=== PATIENT | female | born 1980 | race African-American/Black ===

== ENCOUNTER 2017-03-20 11:11 | Emergency (ER) | payer MEDICAID ==
[~2017-03-20] VITALS: Ht 175.3 cm; Wt 94.0 kg
[~2017-03-20 11:11] MED LIST: OXYC30TA3 PO
[2017-03-20 11:13] VITALS: BP 127/79; PULSE 65; RESP 13; TEMP 98.6; O2SAT 97
[2017-03-20] MEDS ORDERED: AMOX875T PO (11:41)
--- NOTE | 2017-03-20 11:46 | PD ---
HPI Chief Complaint: Oral / Dental Pain or Problem Time Seen by Provider: 11:41 Travel History International Travel<30 days: No Contact w/Intl Traveler<30days: No Traveled to known affect area: No History of Present Illness HPI 36-year-old Afro-Maldivian female presents the emergency department with pain and loose #19 tooth. Patient states she's been doing this for several weeks. Patient is awaiting placement with an oral surgeon to have it fixed. Patient states she improves with amoxicillin previously but is unable to get in with her primary care physician for refill. She is not requesting any kind of pain medication. Pain is currently an 8 out of 10. She denies fever, chills, or difficulty swallowing. She has no known drug allergies. [facility] Past Medical History Anxiety: Yes Heart Rhythm Problems: Yes (HEART MURMUR) Cardiac Catheterization: No Cardiovascular Problems: Yes (HTN) High Cholesterol: No Chest Pain: Yes Congestive Heart Failure: No Diabetes: No Diminished Hearing: No Hypertension: Yes Musculoskeletal: Yes (CHRONIC BACK AND NECK PAIN SINCE 2004) Menopausal: Yes : 3 Para: 2 Miscarriage: 1 : 1 Past Surgical History Body Medical Devices: PATIENT STATES SHE HAS A HEART MURMUR. Coronary Artery Bypass Graft: No Social History Alcohol Use: Yes (SELDOM) Tobacco Use: Yes (CIGAR) Substance Use: No Allergies-Medications (Allergen,Severity, Reaction): Coded Allergies: No Known Allergies (Verified , 03/20/17) Reported Meds & Prescriptions Reported Meds & Active Scripts Active Reported Roxicodone (Oxycodone HCl) 30 Mg Tab 30 Mg PO Review of Systems Except as stated in HPI: all other systems reviewed are Neg General / Constitutional: No: Fever Eyes: No: Visual changes HENT: Positive: Dental Difficulties, No: Headaches, Sore Throat, Rhinitis, Rhinorrhea, Congestion, Neck Stiffness, Neck Pain, Gingival Bleeding, Ear Discharge, Earache Cardiovascular: No: Chest Pain or Discomfort Respiratory: No: Shortness of Breath Gastrointestinal: No: Abdominal Pain Genitourinary: No: Dysuria Musculoskeletal: No: Pain Skin: No Rash Neurologic: No: Weakness Psychiatric: No: Depression Endocrine: No: Polydipsia Hematologic/Lymphatic: No: Easy Bruising Physical Exam Narrative GENERAL: Patient appears in mild distress. SKIN: Warm and dry. Normal color. Normal turgor. HEAD: Atraumatic. Normocephalic. EYES: Pupils equal and round. No scleral icterus. No injection or drainage. ENT: No nasal bleeding or discharge. Mucous membranes pink and moist. No significant gingival swelling is noted. #19 tooth is loose and tender with palpation. Pharynx is clear. Airway is patent. No significant lymphadenopathy is noted. NECK: Trachea midline. Supple nontender without significant lymphadenopathy. No Estevan's angina. CARDIOVASCULAR: Regular rate and rhythm. RESPIRATORY: No accessory muscle use. Clear to auscultation. Breath sounds equal bilaterally. MUSCULOSKELETAL: Extremities without clubbing, cyanosis, or edema. No obvious deformities. NEUROLOGICAL: Awake and alert. No obvious cranial nerve deficits. Motor grossly within normal limits. Five out of 5 muscle strength in the arms and legs. Normal speech. PSYCHIATRIC: Appropriate mood and affect; insight and judgment normal. Data Data Last Documented VS Vital Signs Date Time Temp Pulse Resp B/P Pulse Ox O2 Delivery O2 Flow Rate FiO2 03/20/17 11:13 98.6 65 13 127/79 97 MDM Medical Decision Making Medical Screen Exam Complete: Yes Emergency Medical Condition: Yes Differential Diagnosis Dental pain. Dental abscess. Dental caries. Narrative Course Patient is medically stable at time of exam. Patient is given amoxicillin 875 twice a day #28. Patient take [id number] ibuprofen, Tylenol may resolve as needed. Patient follow-up with oral surgeon as discussed. Diagnosis Primary Impression: Pain, dental Referrals: Oral Maxillofacial Surgeon call for appointment Patient Instructions: General Instructions Additional Instructions: Patient is given amoxicillin 875 twice a day #28. Patient take [id number] ibuprofen, Tylenol may resolve as needed. Patient follow-up with oral surgeon as discussed. Med/Other Pt SpecificInfo: Prescription(s) given Scripts Amoxicillin 875 Mg Ned924 Mg PO BID #28 TAB Ref 1 Prov:Tiffany Montes De Oca MD 03/20/17 Disposition: 01 DISCHARGE HOME Condition: Stable Mau Vasquez Mar 20, 2017 11:45
== END 2017-03-20 12:25 | disposition home or self-care (01) ==
LOC: NEPK 11:11
DX: K03.9 Disease of hard tissues of teeth, unspecified (principal); I10 Essential (primary) hypertension; Z72.0 Tobacco use
CPT/HCPCS: 99283